=== PATIENT | female | born 1960 | race Hispanic/Latino ===

== ENCOUNTER → 2020-06-07 | Outpatient (CLI) | payer OTHER | END | disposition home or self-care (01) | LOC: OIH 08:32 | PROVIDERS: ATTEND Family Medicine | DX: M16.12 Unilateral primary osteoarthritis, left hip (principal); M47.816 Spondylosis without myelopathy or radiculopathy, lumbar region | CPT/HCPCS: 72100; 73502 ==

== ENCOUNTER → 2020-08-02 | Outpatient (CLI) | payer MEDICAID | END | disposition home or self-care (01) | LOC: OIH 10:09 | PROVIDERS: ATTEND Family Medicine | DX: M17.0 Bilateral primary osteoarthritis of knee (principal); M25.762 Osteophyte, left knee; M25.761 Osteophyte, right knee; M23.8X2 Other internal derangements of left knee; M23.8X1 Other internal derangements of right knee ==

== ENCOUNTER → 2022-12-10 | Emergency (ER) | payer MEDICARE ==
[~2022-12-10] MED LIST: DULO30CA52 PO; GABA-529 PO; LEVO100 PO; LISI20TA24 PO; MELO-108 PO; METF-910 PO; OMEP40CA21 PO
== END | disposition left against medical advice (07) ==
LOC: EDH 20:43
DX: N64.9 Disorder of breast, unspecified (principal); Z53.21 Procedure and treatment not carried out due to patient leaving prior to being seen by health care provider

== ENCOUNTER 2025-02-13 07:44 | Emergency (ER) | payer OTHER, MEDICARE ==
[~2025-02-13] VITALS: Ht 152.4 cm; Wt 106.1 kg
--- NOTE | 2025-02-13 08:22 | ERN ---
General Chief Complaint: Knee Injury/Swelling Stated Complaint: LT KNEE PAIN Time Seen by MD: 07:51 Source: patient History of Present Illness Initial Comments Patient is a 64-year-old female coming in complaining of left knee pain. Patient states he has a history of left knee pain and she attributes it to her arthritis. Patient has been having this pain for some time but this flare-up began a couple of days ago. Allergies: Coded Allergies: No Known Allergies (Unverified Allergy, Unknown, 12/11/22) Home Meds Reported Medications Duloxetine HCl (Duloxetine HCl) 30 Mg Capsule.dr, 1 CAP PO DAILY 12/11/22 Gabapentin (Gabapentin) 100 Mg Capsule, 1 CAP PO DAILY 12/11/22 Meloxicam (Meloxicam) 15 Mg Tablet, 1 TAB PO DAILY 12/11/22 Levothyroxine Sodium (Levothroid/Synthroid) 100 Mcg Tab, 1 TAB PO DAILY 12/11/22 Metformin HCl (Metformin HCl ER) 500 Mg Tab.er.24h, 1 TAB PO DAILY 12/11/22 Lisinopril (Lisinopril) 20 Mg Tablet, 1 TAB PO DAILY 12/11/22 Omeprazole (Omeprazole) 40 Mg Capsule.dr, 1 CAP PO DAILY 12/11/22 Past Medical History Past Medical History: Anxiety, Arthritis, Depression, Diabetes-Type II, Hypertension, Hypothyroid Medical History Other: RA Past Surgical History: Other Surgical History Other: TUBAL LIGATION Social History Social History: Lives with family ROS Dictation CONSTITUTIONAL: No chills, no fever, no weakness, no diaphoresis, no malaise. HEAD/FACE: No signs of trauma. EENT: No eye pain, no blurred vision, no tearing, no double vision, no ear pain, no ear discharge, no nose pain, no nasal congestion, no throat pain, no throat swelling, no mouth pain. RESPIRATORY: No cough, no orthopnea, no SOB, no stridor, no wheezing. CARDIOVASCULAR: No chest pain, no edema, no palpitations, no syncope. GASTROINTESTINAL/ABDOMINAL: No abdominal pain, no constipation, no diarrhea, no nausea, no vomiting. GENITOURINARY: No abnormal discharge, no dysuria, no frequent urination, no hematuria. No complaints of pain in the genitals. MUSCULOSKELETAL: No back pain, no gout, joint pain, no joint swelling, no muscle pain, no muscle stiffness, no neck pain. INTEGUMENTARY: No change in color, no change in hair/nails, no dryness, no lesion, no lumps, no rash. NEUROLOGICAL/PSYCH: No anxiety, not depressed, no emotional problem, no headache, no numbness, no pre-existing deficit, no history of seizures, no tremors, no weakness. HEMATOLOGIC/LYMPHATIC: Not anemic, no history of blood clots, no apparent bleeding, no bruising, glands not swollen. All Systems Negative, Except as Noted. Physical Exam Physical Exam Dictation VITAL SIGNS: Reviewed. GENERAL APPEARANCE: Alert, oriented x3, no acute distress, obese. HEAD AND FACE: Non-traumatic. EYES: PERRL, pink conjunctivas, eyelid no trauma, anterior chamber clear. EARS: Pinnas intact and no signs of trauma or erythema. Ear canals clear and no discharge. TMs no erythema. NOSE: No discharge, no bleeding. OROPHARYNX: Mouth normal, teeth no caries, tongue pink. Pharynx clear, no erythema. Tonsils no exudates, no abscesses noted. Mucous membrane moist. NECK: Supple, non-tender, no thyromegaly, no masses, no JVD, no bruits. BREAST: Deferred. CHEST: No tenderness, no crepitus, no paradoxical movement, no retractions. LUNGS: Clear, well-ventilated, symmetric, no rales, no wheezing, no rhonchi, no stridor, good breath sounds bilaterally. HEART: Regular rate, regular rhythm, no murmur, no gallops. VASCULAR: No peripheral edema. ABDOMEN: Soft, positive bowel sounds, nondistended, no guarding, nontender, no rebound, no masses no hepatomegaly, no splenomegaly, no Tamayo's sign, no he rnias. RECTAL: Deferred. GENITAL: Deferred. NEUROLOGICAL: Normal speech, gross motor function intact, gross sensory functio n intact. MUSCULOSKELETAL: Neck nontender, full range of motion, back nontender, full range of motion. EXTREMITIES: Nontender, full range of motion. Left knee pain on palpation SKIN: Color pink, dry, no turgor, no rash, no lacerations, no abrasions, no contusions. LYMPHATICS: Deferred. Results Laboratory and Microbiology Labs Reviewed?: Yes EKG/XRAY/US/CT/MRI X-RAY Comment X-ray knee-NAD chronic changes MDM MDM: Differential diagnosis: Osteoarthritis of the knee, knee strain, Rationale: Tests considered and ordered secondary to shared decision making include: Previous outside records reviewed: Old ER visits. Risk of complication and/or morbidity or mortality of patient management: None Medications-Per medication reconciliation Need for hospitalization: Patient does not meet criteria for hospitalization. Need for emergency major/minor surgery: No Patient is a 64-year-old female coming in complaining of left knee pain. On physical exam there is tenderness to palpation swelling no deformity noted x-ray did not disclose acute findings. Patient will be discharged with a knee immobilizer. I did advised her appropriate follow up with PCP for long-term management. Patient will be discharged in stable condition. ED Course Orders Procedure Category Date Status Time Knee 3vws Lt RAD 02/13/25 Taken 07:52 Ketorolac PHA 02/13/25 Complete Tromethamine 30mg/Ml 08:00 Knee Immobilizer TOM 02/13/25 Transmitted 08:30 Current Medications Medications (Trade) Dose Ordered Sig/Paola Route PRN Reason Start Time Stop Time Status Last Admin Dose Admin Ketorolac Tromethamine (toRADol) 30 mg ONCE ONCE IM 02/13/25 08:00 02/13/25 08:01 DC 02/13/25 08:21 Vital Signs Date Time Temp Pulse Resp B/P (MAP) Pulse Ox O2 Delivery O2 Flow Rate FiO2 02/13/25 07:53 98.1 61 20 141/60 Room Air* 0 21 02/13/25 07:46 98.1 61 20 141/60 98 Room Air DX & DISP Disposition: Discharge Departure Impression: Primary Impression: Osteoarthritis of left knee Condition: Stable Scripts Diclofenac Sodium (Voltaren Arthritis Pain) 1 % Gel..gram. 5 GM TP BID for 7 Days, #1 TUBE Prov: JUVENCIO LEWIS MD 02/13/25 Additional Instructions: FOLLOW-UP WITH PRIMARY CARE PROVIDER IN 1 TO 2 DAYS. TAKE MEDICATIONS DIRECTED HERE IN THE EMERGENCY ROOM. OKAY TO CONTINUE HOME MEDICATIONS UNLESS OTHERWISE DISCUSSED DURING YOUR VISIT IN THE EMERGENCY ROOM TODAY. RETURN TO YOUR NEAREST EMERGENCY ROOM IF SYMPTOMS WORSEN OR IF THERE IS NO IMPROVEMENT. CALL 911 IF YOU NEED IMMEDIATE ASSISTANCE. TAKE TYLENOL [id number] NEEDED AND IF NO CONTRAINDICATIONS ARE PRESENT. INCREASE ORAL HYDRATION. A WOUND CULTURE OR URINE CULTURE WAS ORDERED HERE IN THE EMERGENCY ROOM DEPARTMENT PLEASE FOLLOW-UP WITH PRIMARY CARE PROVIDER AND ADVISE THEM TO GET REPORTS FROM OUR FACILITY. IF YOU HAD ANY SAVANNA WRAP/SPLINTS THAT WERE APPLIED HERE, PLEASE DO NOT REMOVE THEM UNTIL YOU SEE YOUR PRIMARY CARE OR SPECIALTY. Referrals: Referrals: GEE LOPEZ MD (PCP) Time of Disposition: 08:34 JUVENCIO LEWIS MD Feb 13, 2025 08:22
[2025-02-13] MEDS ORDERED: DICL20GE TP (08:35)
--- NOTE | 2025-02-13 08:42 | NUR ---
KNEE IMMOBILIZER APPLIED TO THE LEFT KNEE AT THIS TIME
--- NOTE | 2025-02-13 08:52 | HMCIMG ---
EXAM: CR right Knee, 3 View. CLINICAL HISTORY: pain COMPARISON: None provided. FINDINGS: BONES: No acute fracture or aggressive appearing osseous lesion. JOINTS: The joint spaces show no significant degenerative disease. There is no joint effusion appreciated. SOFT TISSUES: The soft tissues are unremarkable. IMPRESSION: No acute osseous pathology evident. /[place]
[2025-02-13 10:03] VITALS: BP 141/60; PULSE 61; RESP 12; TEMP 98.6; O2SAT 98
== END 2025-02-13 08:58 | disposition home or self-care (01) ==
LOC: EDH 07:44
DX: M17.12 Unilateral primary osteoarthritis, left knee (principal); E03.9 Hypothyroidism, unspecified; E11.9 Type 2 diabetes mellitus without complications; I10 Essential (primary) hypertension; Z79.1 Long term (current) use of non-steroidal anti-inflammatories (NSAID); Z79.84 Long term (current) use of oral hypoglycemic drugs; Z79.890 Hormone replacement therapy; Z79.899 Other long term (current) drug therapy; Z98.51 Tubal ligation status
CPT/HCPCS: 99283; 29505; 73562; 96372; J1885